=== PATIENT | female | born 1955 | race Caucasian/White ===

== ENCOUNTER → 2016-07-17 | Outpatient (CLI) | payer OTHER ==
--- NOTE | 2016-07-17 09:21 | WOMENS IMAGING REPORT ---
EXAM DESCRIPTION: BILAT SCREENING MAMMO W/CAD COMPLETED DATE/TIME: 07/17/2016 9:12 am REASON FOR STUDY: Z12.31 ROUTINE SCREENING MAMMO Z12.31 ENCNTR SCREEN MAMMOGRAM FOR MALIGNANT NEOPL ASM OF BIBI COMPARISON: Multiple since 2010 TECHNIQUE: Standard craniocaudal and mediolateral oblique views of each breast recorded using [employer] l acquisition. LIMITATIONS: None. FINDINGS: No masses, calcifications or architectural distortion. No areas of suspicion. Read with the assistance of CAD. .[facility] - R2 Cenova Version 1.3 .[facility] Imaging - R2 Cenova Version 1.3 .[facility] Imaging - R2 Cenova Version 2.4 .[facility] - R2 Cenova Version 2.4 .[facility] - R2 [employer] Version 9.2 BREAST DENSITY: b. There are scattered areas of fibroglandular density. BIRAD: 1 NEGATIVE RECOMMENDATION: ROUTINE SCREENING COMMENT: PATIENT NOTIFIED BY LETTER. The [employer] recommends an annual screening mammogram for women aged 40 years or over. Each patient will receive a reminder prior to the anniversary date of her mammogram. The [employer] (ACR) has developed recommendations for screening MRI of the breast s in certain patient populations, to be used in conjunction with mammography. Breast MRI surveillanc e may be appropriate for women with more than 20% lifetime risk of developing breast cancer as deter mined by genetic testing, significant family history of the disease, or history of mantle radiation f or Hodgkins Disease. ACR Practice Guidelines 2008. TECHNICAL DOCUMENTATION: FINDING NUMBER: (1) ASSESSMENT: (1) JOB ID: [id number] [employer]- All Rights Reserved
== END ==
LOC: WI 08:48
PROVIDERS: ATTEND Physician Assistant
DX: Z12.31 Encounter for screening mammogram for malignant neoplasm of breast (principal)
CPT/HCPCS: 77067; G0202

== ENCOUNTER 2016-08-07 07:35 | Day surgery (SDC) | payer OTHER ==
[~2016-08-07 07:35] MED LIST: EPINEPHRINE INJ 1 MG/10 ML DISP.SYRIN ONE; FLUMAZENIL INJ 0.5 MG/5 ML VIAL IV ONE; GLUCAGON,HUMAN RECOMB 1 MG INJ ONE; GLYCOPYRROLATE INJ 0.4 MG/2 ML VIAL ONE; LIDOCAINE 2% JELLY 30 ML TUBE ONE; NALOXONE HCL INJ/PF 0.4 MG/1 ML SDV ONE; ONDANSETRON HCL INJ/PF 4 MG/2 ML SDV ONE; PROMETHAZINE HCL INJ 25 MG/1 ML VIAL ONE
[2016-08-07] MEDS: MIDAZOLAM 2 MG/2 ML INJ ONE ×2 (08:02→08:07)
[2016-08-07] MEDS: FENTANYL CITRATE INJ/PF 100 MCG/2 ML AMPUL ONE ×2 (08:04→08:10)
[2016-08-07 09:20] LABS: ABSOLUTE BASOPHILS # (AUTO) 0.1 10^3/uL (0.0-0.2); ABSOLUTE EOSINOPHILS # (AUTO) 0.1 10^3/uL (0.0-0.6); ABSOLUTE MONOCYTES (AUTO) 0.9 10^3/uL (0.1-1.4); ABSOLUTE NEUT (AUTO) 10.6 10^3/uL (1.7-8.2); BASOPHILS % (AUTO) 0.5 % (0-2); HEMATOCRIT 37.1 % (36.0-47.0); HEMOGLOBIN 12.7 g/dL (12.0-15.5); LYMPHOCYTES % (AUTO) 14.4 % (13-45); MEAN CORPUSCULAR HEMOGLOBIN 30.6 pg (27.0-33.4); MEAN CORPUSCULAR HGB CONC 34.2 g/dL (32.0-36.0); MEAN CORPUSCULAR VOLUME 90 fl (80-97); MONOCYTES % (AUTO) 6.6 % (3-13); RED BLOOD COUNT 4.15 10^6/uL (3.72-5.28); RED CELL DISTRIBUTION WIDTH 12.9 % (11.5-14.0); SEGMENTED NEUTROPHILS % (AUTO) 77.5 % (42-78); WHITE BLOOD COUNT 13.7 10^3/uL (4.0-10.5)
[2016-08-07 09:41] VITALS: BP 131/61
--- NOTE | 2016-08-07 15:27 | DISCHARGE SUMMARY E ---
Discharge Summary NAME: MARIAH COURTNEY : 1955 AGE: 61Y ADMITTED: 08/07/2016 DISCHARGED: 08/07/2016 PROCEDURE: Colonoscopy. FINAL DIAGNOSES: 1. Redundant colon. 2. External hemorrhoids. 3. Mild diminutive rectal polyps. 4. A 2 mm sigmoid polyp. HOSPITAL COURSE: A 61-year-old female underwent colon screening, shows no malignancy. Difficult colonoscopy but successful to the cecum. Today the colon shows diminutive 2 mm polyps, sigmoid and rectum. She did have mild external hemorrhoids. DISCHARGE PLAN: 1. Soft residue diet. 2. Baseline CBC. 3. Advised to come to the emergency room if she has severe or moderate abdominal pain. 4. She is to avoid aspirin and nonsteroidal for a week. 5. Consider followup colonoscopy in 3 years. Keep in mind she has difficult sigmoid intubation. DICTATING PHYSICIAN: NIYA CONTRERAS M.D. [id number] PHY#: [id number] ID: [id number] JOB#: [id number] ACCT: [id number] cc:NIYA CONTRERAS M.D., SWETANG M.D. >
--- NOTE | 2016-08-07 15:29 | OPERATIVE REPORT E ---
Operative Report NAME: MARIAH COURTNEY : 1955 AGE: 61Y DATE OF SURGERY: 08/07/2016 ROOM: PREOPERATIVE DIAGNOSIS: Colon screening. POSTOPERATIVE DIAGNOSES: 1. Redundant colon. 2. A 2 mm anal polyp. 3. A 2 mm sigmoid polyp. 4. These are small hyperplastic diminutive polyps, no biopsy obtained. 5. Mild external hemorrhoids. PROCEDURE: Colonoscopy. SURGEON: NIYA CONTRERAS M.D. ANESTHESIA: Versed 3; fentanyl 100. TISSUE REMOVED OR ALTERED: None. DESCRIPTION: Rectal exam: Shows mild external hemorrhoids. Anal area shows 2 mm diminutive polyp, too small to biopsy. Sigmoid colon: A 2 mm polyp, too small to biopsy. Sigmoid descending colon: Redundant, difficult to intubate. We were able to pass it with some difficulty. There was mild bruise, mild hickey in the sigmoid but no perforation and no bleeding. Descending colon: Shows no polyps. Transverse colon: Showed some stool. Ascending colon: Showed some stool. Cecum: Normal. Scope was withdrawn from cecum, ascending, transverse, descending, and sigmoid, shows small ecchymosis from difficulty of sigmoid intubation but no tear, no bleeding, no perforation. The rectum and the sigmoid otherwise shows diminutive, benign looking polyps. PLAN: 1. Full liquids for a few hours, then soft low-residue. 2. Baseline CBC. 3. Patient advised to come to the EMERGENCY ROOM if he has abdominal pain. 4. Patient may need followup colonoscopy after 3 years regarding inadequate prep and redundant colon. Keep in mind she has difficult sigmoid intubation. DICTATING PHYSICIAN: NIYA CONTRERAS M.D. [id number] Y#: [id number] ID: [id number] JOB#: [id number] ACCT: [id number] cc:NIYA CONTRERAS M.D., SWETANG M.D. >
== END 2016-08-07 09:40 | disposition home or self-care (01) ==
LOC: END 07:35
PROVIDERS: ATTEND Specialist
PROC: 0DJD8ZZ Inspection of Lower Intestinal Tract, Via Natural or Artificial Opening Endoscopic (ICD-10-PCS; principal; 2016-08-07 08:00)
DX: Z12.11 Encounter for screening for malignant neoplasm of colon (principal); Q43.8 Other specified congenital malformations of intestine; K64.4 Residual hemorrhoidal skin tags; K62.1 Rectal polyp; D12.7 Benign neoplasm of rectosigmoid junction; F17.210 Nicotine dependence, cigarettes, uncomplicated; E78.00 Pure hypercholesterolemia, unspecified; Z79.899 Other long term (current) drug therapy
CPT/HCPCS: 45378; 36415; 85025; J2250; J3010; J1610; J0171; J2310; J2405; J2550; J3490

== ENCOUNTER 2016-10-15 06:20 | Emergency (ER) | payer OTHER ==
[2016-10-15 06:59] LABS: ABSOLUTE BASOPHILS # (AUTO) 0.1 10^3/uL (0.0-0.2); ABSOLUTE EOSINOPHILS # (AUTO) 0.2 10^3/uL (0.0-0.6); ABSOLUTE LYMPHOCYTES (AUTO) 4.2 10^3/uL (0.5-4.7); ABSOLUTE MONOCYTES (AUTO) 0.7 10^3/uL (0.1-1.4); ABSOLUTE NEUT (AUTO) 5.4 10^3/uL (1.7-8.2); BASOPHILS % (AUTO) 0.8 % (0-2); EOSINOPHILS % (AUTO) 1.6 % (0-6); HEMATOCRIT 37.6 % (36.0-47.0); HEMOGLOBIN 13.2 g/dL (12.0-15.5); LYMPHOCYTES % (AUTO) 40.1 % (13-45); MEAN CORPUSCULAR HEMOGLOBIN 31.2 pg (27.0-33.4); MEAN CORPUSCULAR VOLUME 89 fl (80-97); MONOCYTES % (AUTO) 6.4 % (3-13); RED BLOOD COUNT 4.23 10^6/uL (3.72-5.28); RED CELL DISTRIBUTION WIDTH 13.1 % (11.5-14.0); SEGMENTED NEUTROPHILS % (AUTO) 51.1 % (42-78); WHITE BLOOD COUNT 10.5 10^3/uL (4.0-10.5)
[2016-10-15] MEDS ORDERED: NORMAL SALINE 1000 ML 1,000 ML IV ONE (07:03)
[2016-10-15 07:15] LABS: ALANINE AMINOTRANSFERASE 34 U/L (9-52); ALBUMIN 4.4 g/dL (3.5-5.0); ALKALINE PHOSPHATASE 36 U/L (38-126); ANION GAP 13 (5-19); ASPARTATE AMINO TRANSFERASE 36 U/L (14-36); BILIRUBIN,DIRECT 0.1 mg/dL (0.0-0.4); BILIRUBIN,TOTAL 0.4 mg/dL (0.2-1.3); BLOOD UREA NITROGEN 14 mg/dL (7-20); CALCIUM 9.7 mg/dL (8.4-10.2); CARBON DIOXIDE 25 mmol/L (22-30); CHLORIDE 107 mmol/L (98-107); CREATINE KINASE 37 U/L (30-135); CREATININE RESULT 0.57 mg/dL (0.52-1.25); GLUCOSE 114 mg/dL (75-110); POTASSIUM 4.4 mmol/L (3.6-5.0); SODIUM 145.4 mmol/L (137-145); TOTAL PROTEIN 6.9 g/dL (6.3-8.2)
[2016-10-15 07:26] LABS: CREATINE KINASE MB < 0.22 ng/mL (<4.55); TROPONIN I < 0.012 ng/mL
--- NOTE | 2016-10-15 07:37 | ER Document Report ---
ED Syncope and Near Syncope - General Mode of Arrival: Ambulatory Information source: Patient TRAVEL OUTSIDE OF THE [place] IN LAST 30 DAYS: No - HPI Patient complains to provider of: Nearly fainting Episode witnessed (by whom): Yes - Single episoded occurred: yes Position/Activity at time of episode: Standing Details of activity: standing up out of her chair to use the restroom Context: Almost passed out, Collapsed Injury location: None Current symptoms: None/feels back to normal <BROCK OROZCO - Last Filed: 10/15/16 07:42> <PATRICK DEAL - Last Filed: 10/15/16 07:55> - General Chief Complaint: Syncope Stated Complaint: POSSIBLE SYNCOPE EPISODE Time Seen by Provider: 10/15/16 06:50 Notes: Patient is a 61-year-old female presenting to the emergency department to accompany her , who is also a patient, but after sitting for several minutes, she stood up to go to the bathroom and had a near syncopal episode where she fell. Patient does not believe that she lost consciousness, and she denies any injury. Patient states "it is probably because I have not had my morning coffee yet." Patient's primary care physician is Dr. Garza, who she was supposed to have an appointment with this morning at 0800. (BROCK OROZCO) - Related Data Allergies/Adverse Reactions: No Known Allergies Allergy (Verified 08/05/16 13:59) Past Medical History - General Information source: Patient - Social History Smoking Status: Unknown if Ever Smoked Family History: Reviewed & Not Pertinent - Past Medical History Cardiac Medical History: Reports: Hx Hypercholesterolemia Denies: Hx Hypertension Pulmonary Medical History: GI Medical History: Musculoskeltal Medical History: Infectious Medical History: Past Surgical History: Reports: Hx Adenoidectomy, Hx Orthopedic Surgery - Left ankle, left knee, left leg, Hx Tonsillectomy, Other - Ganglion cyst removal - Immunizations Hx Diphtheria, Pertussis, Tetanus Vaccination: Yes <BROCK OROZCO - Last Filed: 10/15/16 07:42> Review of Systems - Review of Systems Constitutional: No symptoms reported EENT: No symptoms reported Cardiovascular: No symptoms reported, Syncope - Near-Syncope Respiratory: No symptoms reported Gastrointestinal: No symptoms reported Genitourinary: No symptoms reported Female Genitourinary: No symptoms reported Musculoskeletal: No symptoms reported Skin: No symptoms reported Hematologic/Lymphatic: No symptoms reported Neurological/Psychological: No symptoms reported -: Yes All other systems reviewed and negative <ERNESTOBROCK - Last Filed: 10/15/16 07:42> Physical Exam - General General appearance: Appears well, Alert - HEENT Head: Normocephalic, Atraumatic Eyes: Normal Pupils: PERRL Neck: No: Carotid bruit - Respiratory Respiratory status: No respiratory distress Chest status: Nontender Breath sounds: Normal Chest palpation: Normal - Cardiovascular Rhythm: Regular Heart sounds: Normal auscultation Murmur: No - Abdominal Inspection: Normal - Soft - Back Back: Normal, Nontender - Extremities General upper extremity: Normal inspection, Nontender General lower extremity: Normal inspection, Nontender - Neurological Neuro grossly intact: Yes Cognition: Normal Orientation: AAOx4 Alexis Coma Scale Eye Opening: Spontaneous Thornton Coma Scale Verbal: Oriented Thornton Coma Scale Motor: Obeys Commands Alexis Coma Scale Total: 15 - Psychological Associated symptoms: Normal affect, Normal mood - Skin Skin Temperature: Warm Skin Moisture: Dry Skin Color: Normal <BROCK OROZCO - Last Filed: 10/15/16 07:42> Course - Laboratory Result Diagrams: 10/15/16 06:34 10/15/16 06:34 <ERNESTOBROCK - Last Filed: 10/15/16 07:42> - Laboratory Result Diagrams: 10/15/16 06:34 10/15/16 06:34 - EKG Interpretation by Pr EKG shows normal: Sinus rhythm, [place], QRS Complexes, ST-T Waves. abnormal: Intervals - Borderline prolonged QT interval Rate: Normal - 76 Rhythm: NSR When compared to previous EKG there are: Previous EKG unavailable <PATRICK DEAL - Last Filed: 10/15/16 07:55> - Vital Signs Vital signs: Temp Pulse Resp BP Pulse Ox 97.4 F 48 L 20 137/67 H 100 10/15/16 06:20 10/15/16 06:20 10/15/16 07:31 10/15/16 07:31 10/15/16 07:31 - Laboratory Laboratory results interpreted by me: 10/15/16 06:34 Sodium 145.4 H Glucose 114 H Alkaline Phosphatase 36 L Discharge <BROCK OROZCO - Last Filed: 10/15/16 07:42> <SAYJARETH VirgenPATRICK - Last Filed: 10/15/16 07:55> - Discharge Clinical Impression: Vasovagal syncope Condition: Stable Disposition: HOME, SELF-CARE Additional Instructions: Vasovagal Symptoms: Your symptoms seem to be due to a fall in blood pressure, caused by the interaction of your nervous system with your circulatory system. This can result in abnormally slow pulse rate, faintness, abnormal sensations, low blood pressure, difficulty with vision, or fainting (syncope). Vasovagal symptoms may be brought on by emotional distress, pain, dehydration, bleeding, or medication effects. Often, no cause can be identified. Your exam has revealed no signs of a serious problem. Usually, no further tests are required. However, if further workup has been recommended it's important that you follow up as instructed. Should you feel lightheaded or "about to faint," you should sit or lie down as quickly as possible. The episode will usually pass. Recurring symptoms will require further evaluation to determine the cause. Call the physician if you develop severe prolonged dizziness, headache, chest pain, shortness of breath, or other new symptoms. //////////////////////////////////////////////////////////////////////////////// //////////////////////////////////////////////////////////////////////////////// /////////////// Drink plenty of fluids today. Follow-up with Dr. Garza if further problems. RETURN TO THE EMERGENCY ROOM IF ANY NEW OR WORSENING SYMPTOMS. Referrals: LILIANA GARZA MD [Primary Care Provider] - Follow up as needed Scribe Attestation: 10/15/16 07:53 I personally performed the services described in the documentation, reviewed and edited the documentation which was dictated to the scribe in my presence, and it accurately records my words and actions. (PATRICK DEAL) Scribe Documentation - Scribe Written by Scribe:: Brock Orozco 10/15/2016 0733 acting as scribe for :: Say <BROCK OROZCO - Last Filed: 10/15/16 07:42>
[2016-10-15 08:12] VITALS: BP 146/78
--- NOTE | 2016-10-15 11:21 | EKG REPORT ---
SEVERITY:- BORDERLINE ECG - SINUS RHYTHM BORDERLINE PROLONGED QT INTERVAL : Confirmed by: Emile Boston 15-Oct-2016 11:20:45
== END 2016-10-15 08:12 | disposition home or self-care (01) ==
LOC: ER 06:20
DX: R55 Syncope and collapse (principal); W19.XXXA Unspecified fall, initial encounter
CPT/HCPCS: 93005; 99284; 96360; 36415; 82553; 82962; 82550; 85025; 80053; 84484; 93010; J7030

== ENCOUNTER → 2017-07-24 | Outpatient (CLI) | payer OTHER ==
--- NOTE | 2017-07-24 09:15 | WOMENS IMAGING REPORT ---
EXAM DESCRIPTION: BILAT SCREENING MAMMO W/CAD COMPLETED DATE/TIME: 07/24/2017 8:33 am REASON FOR STUDY: ROUTINE SCREENING; Z12.31 Z12.31 ENCNTR SCREEN MAMMOGRAM FOR MALIGNANT NEOPLASM O F BIBI COMPARISON: 2010 to 2016 TECHNIQUE: Standard craniocaudal and mediolateral oblique views of each breast recorded using [employer] acquisition. LIMITATIONS: None. FINDINGS: No masses, calcifications or architectural distortion. No areas of suspicion. Read with the assistance of CAD. .[facility] - R2 Cenova Version 1.3 .[facility] Imaging - R2 Cenova Version 1.3 .[facility] Imaging - R2 Cenova Version 2.4 .[facility] - R2 Cenova Version 2.4 .[facility] - R2 [employer] Version 9.2 IMPRESSION: NORMAL MAMMOGRAM. BIRADS 1. BREAST DENSITY: b. There are scattered areas of fibroglandular density. BIRAD: 1 NEGATIVE RECOMMENDATION: ROUTINE SCREENING COMMENT: The patient has been notified of the results by letter per SA requirements. Additional no tification policies are in place for contacting patient with suspicious or incomplete findings. Quality ID #[id number]: The [employer] recommends an annual screening mammogram for women aged 40 years or over. This facility utilizes a reminder system to ensure that all patients receive reminder letters, and/or direct phone calls for appointments. This includes reminders for routine scr eening mammograms, diagnostic mammograms, or other Breast Imaging Interventions when appropriate. Th is patient will be placed in the appropriate reminder system. The [employer] (ACR) has developed recommendations for screening MRI of the breast s in certain patient populations, to be used in conjunction with mammography. Breast MRI surveillanc e may be appropriate for women with more than 20% lifetime risk of developing breast cancer as deter mined by genetic testing, significant family history of the disease, or history of mantle radiation f or Hodgkins Disease. ACR Practice Guidelines 2008. TECHNICAL DOCUMENTATION: FINDING NUMBER: (1) ASSESSMENT: (1) JOB ID: [id number] [employer]- All Rights Reserved
== END ==
LOC: WI 08:18
PROVIDERS: ATTEND Physician Assistant
DX: Z12.31 Encounter for screening mammogram for malignant neoplasm of breast (principal)
CPT/HCPCS: 77067

== ENCOUNTER → 2018-09-22 | Outpatient (CLI) | payer MEDICARE, OTHER ==
--- NOTE | 2018-09-22 11:39 | WOMENS IMAGING REPORT ---
EXAM DESCRIPTION: 3D SCREENING MAMMO BILAT COMPLETED DATE/TIME: 09/22/2018 10:45 am REASON FOR STUDY: Z12.31 ROUTINE 3D BILATERAL SCREENING Z12.31 ENCNTR SCREEN MAMMOGRAM FOR MALIGNAN T NEOPLASM OF BIBI COMPARISON: 07/24/2017 and 07/17/2016. TECHNIQUE: Standard craniocaudal and mediolateral oblique views of each breast recorded using [employer]ita l acquisition and breast tomosynthesis. LIMITATIONS: None. FINDINGS: RIGHT BREAST MASSES: No suspicious masses. CALCIFICATIONS: No new or suspicious calcifications. ARCHITECTURAL DISTORTION: None. DEVELOPING DENSITY: Possible developing density in the upper-outer breast, located 4 to 5 cm from the nipple. Somewhat indistinct appearance on tomosynthesis images. ASYMMETRY: None noted. OTHER: No other significant findings. LEFT BREAST MASSES: No suspicious masses. CALCIFICATIONS: No new or suspicious calcifications. ARCHITECTURAL DISTORTION: None. DEVELOPING DENSITY: None. ASYMMETRY: None noted. OTHER: No other significant findings. Read with the assistance of CAD. .[facility] - R2 Cenova Version 1.3 .[facility] Imaging - R2 Cenova Version 2.1 .[facility] - R2 Cenova Version 2.4 .[facility] - R2 Cenova Version 2.4 .[facility] - R2 [employer] Version 9.2 IMPRESSION: Possible developing density in the upper-outer right breast. Stable mammographic appear ance of the left breast. BREAST DENSITY: b. There are scattered areas of fibroglandular density. BIRAD: 0 Incomplete: Needs Additional Imaging Evaluation and/or prior Mammograms for Comparison. RECOMMENDATION: RECOMMENDED FOLLOW-UP: Recommend additional evaluation with compression views of the right breast and ultrasound of the right breast. Recommend routine screening mammography of the lef t breast. The patient will be contacted for additional imaging. COMMENT: The patient has been notified of the results by letter per SA requirements. Additional no tification policies are in place for contacting patient with suspicious or incomplete findings. Quality ID #[id number]: The [employer] recommends an annual screening mammogram for women aged 40 years or over. This facility utilizes a reminder system to ensure that all patients receive reminder letters, and/or direct phone calls for appointments. This includes reminders for routine scr eening mammograms, diagnostic mammograms, or other Breast Imaging Interventions when appropriate. Th is patient will be placed in the appropriate reminder system. The [employer] (ACR) has developed recommendations for screening MRI of the breast s in certain patient populations, to be used in conjunction with mammography. Breast MRI surveillanc e may be appropriate for women with more than 20% lifetime risk of developing breast cancer as deter mined by genetic testing, significant family history of the disease, or history of mantle radiation f or Hodgkins Disease. ACR Practice Guidelines 2008. D[employer] DBT is a type of tomographic mammography. With conventional mammography, overlapping breast tissue ma y make lesions difficult to detect, even with good compression. DBT uses an x-ray tube that rotates a round the breast, taking images at different angles. These images are then combined to create thin sl ices of the breast that the radiologist can view as a 3D reconstruction. The [employer] unit can perform full-field digital mammograms (2D imaging); or DBT (3D imaging); or both, in a combination mode that quickly performs both the mammogram and the tomosynthesis scan while the breast is still compressed. PQRS 6045F: Fluoroscopic imaging is not utilized for breast tomosynthesis. TECHNICAL DOCUMENTATION: FINDING NUMBER: (1) ASSESSMENT: (1) JOB ID: [id number] [employer]- All Rights Reserved Reading location - IP/workstation name: [email or web address]
== END ==
LOC: WI 10:29
PROVIDERS: ATTEND Family Medicine
DX: Z12.31 Encounter for screening mammogram for malignant neoplasm of breast (principal); R92.2 Inconclusive mammogram
CPT/HCPCS: 77063; 77067

== ENCOUNTER → 2018-09-29 | Outpatient (CLI) | payer MEDICARE, OTHER ==
--- NOTE | 2018-09-29 10:34 | WOMENS IMAGING REPORT ---
EXAM DESCRIPTION: BONE DENSITY HIP/SPINE COMPLETED DATE/TIME: 09/29/2018 10:03 am REASON FOR STUDY: M81.0 AGE-RELATED OSTEOPOROSIS WITHOUT CURRENT PATHOLOGICAL FRACTURE N63.11 UNSPE CIFIED LUMP IN THE RIGHT BREAST, UPPER OUTER AMISHA M81.0 AGE-RELATED OSTEOPOROSIS W/O CURRENT PATHOLOG ICAL 0 0 COMPARISON: None. TECHNIQUE: Dual-Energy X-ray Absorptiometry (DEXA) of the AP Spine and Hip. LIMITATIONS: None. FINDINGS: LUMBAR SPINE: The bone mineral density (BMD) measured from L1-L4 in the AP projection correlates with a T-score of -2.1, which is osteopenic as defined by the World Health Organization. HIP: The bone mineral density (BMD) measured in the left femoral neck at the hip correlates with a T-score of -1.8, which is osteopenic as defined by the World Health Organization. IMPRESSION: 1. LUMBAR SPINE: OSTEOPENIA. 2. HIP: OSTEOPENIA. COMMENT: The World Health Organization defines low BMD as follows: T-score: Normal: Greater than -1.0 Osteopenia: Between -1.0 and -2.5 Osteoporosis: Less than -2.5 without fractures Established osteoporosis: Less than -2.5 with fractures In general, you may wish to consider: Diagnosis Treatment Follow-up DEXA Normal BMD Prevention 2-3 years Osteopenia Prevention/Therapy 1-2 years Osteoporosis Therapy Yearly TECHNICAL DOCUMENTATION: JOB ID: [id number] [employer]- All Rights Reserved Reading location - IP/workstation name: [email or web address]
--- NOTE | 2018-09-29 14:13 | WOMENS IMAGING REPORT ---
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 Right breast 90 mediolateral view. Right breast ultrasound was also performed. LIMITATIONS: None. FINDINGS: BREAST LATERALITY: Right MASSES: No suspicious masses. CALCIFICATIONS: No new or suspicious calcifications. ARCHITECTURAL DISTORTION: None. DEVELOPING DENSITY: None. ASYMMETRY: None noted. OTHER: No other significant findings. Read with the assistance of CAD. .[facility] - R2 Cenova Version 1.3 .[facility] Imaging - R2 Cenova Version 2.1 .[facility] Imaging - R2 Cenova Version 2.4 .[facility] [place] R2 Cenova Version 2.4 .[facility] - R2 [employer] Version 9.2 Right breast ultrasound: Ultrasound of the right lateral breast was performed from the 8 to 10 o'clock position. No discrete cystic or solid lesions. No worrisome acoustic absorption. No dilated ducts. No focal findings. IMPRESSION: No mammographic or sonographic evidence for malignancy right breast BREAST DENSITY: a. The breasts are almost entirely fatty. BIRAD: 1 Negative. RECOMMENDATION: RECOMMENDED FOLLOW UP: Please continue yearly bilateral screening tomosynthesis in A pri 2020 SPECIFIC INTERVENTION/IMAGING/CONSULTATION RECOMMENDED:No additional intervention/ imaging/consultati on needed at this time. COMMUNICATION:The negative/benign results were communicated to the patient. COMMENT: The patient has been notified of the results by letter per SA requirements. Additional no tification policies are in place for contacting patient with suspicious or incomplete findings. Quality ID #225: The [employer] recommends an annual screening mammogram for women aged 40 years or over. This facility utilizes a reminder system to ensure that all patients receive reminder letters, and/or direct phone calls for appointments. This includes reminders for routine scr eening mammograms, diagnostic mammograms, or other Breast Imaging Interventions when appropriate. Th is patient will be placed in the appropriate reminder system. The [employer] (ACR) has developed recommendations for screening MRI of the breast s in certain patient populations, to be used in conjunction with mammography. Breast MRI surveillanc e may be appropriate for women with more than 20% lifetime risk of developing breast cancer as deter mined by genetic testing, significant family history of the disease, or history of mantle radiation f or Hodgkins Disease. ACR Practice Guidelines 2008. TECHNICAL DOCUMENTATION: FINDING NUMBER: (1) ASSESSMENT: (1) JOB ID: [id number] [employer]- All Rights Reserved Reading location - IP/workstation name: [email or web address]
--- NOTE | 2018-09-29 14:13 | WOMENS IMAGING REPORT ---
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 Right breast 90 mediolateral view. Right breast ultrasound was also performed. LIMITATIONS: None. FINDINGS: BREAST LATERALITY: Right MASSES: No suspicious masses. CALCIFICATIONS: No new or suspicious calcifications. ARCHITECTURAL DISTORTION: None. DEVELOPING DENSITY: None. ASYMMETRY: None noted. OTHER: No other significant findings. Read with the assistance of CAD. .[facility] - R2 Cenova Version 1.3 .[facility] - R2 Cenova Version 2.1 .[facility] - R2 Cenova Version 2.4 [place] [place] Cenova [place] 2.4 .[facility] - R2 Angle Shear Set Up Operator Version 9.2 Right breast ultrasound: Ultrasound of the right lateral breast was performed from the 8 to 10 o'clock position. No discrete cystic or solid lesions. No worrisome acoustic absorption. No dilated ducts. No focal findings. IMPRESSION: No mammographic or sonographic evidence for malignancy right breast BREAST DENSITY: a. The breasts are almost entirely fatty. BIRAD: 1 Negative. RECOMMENDATION: RECOMMENDED FOLLOW UP: Please continue yearly bilateral screening tomosynthesis in A pri 2020 SPECIFIC INTERVENTION/IMAGING/CONSULTATION RECOMMENDED:No additional intervention/ imaging/consultati on needed at this time. COMMUNICATION:The negative/benign results were communicated to the patient. COMMENT: The patient has been notified of the results by letter per SA requirements. Additional no tification policies are in place for contacting patient with suspicious or incomplete findings. Quality ID #[id number]: The [employer] recommends an annual screening mammogram for women aged 40 years or over. This facility utilizes a reminder system to ensure that all patients receive reminder letters, and/or direct phone calls for appointments. This includes reminders for routine scr eening mammograms, diagnostic mammograms, or other Breast Imaging Interventions when appropriate. Th is patient will be placed in the appropriate reminder system. The [employer] ([employer]) has developed recommendations for screening MRI of the breast s in certain patient populations, to be used in conjunction with mammography. Breast MRI surveillanc e may be appropriate for women with more than 20% lifetime risk of developing breast cancer as deter mined by genetic testing, significant family history of the disease, or history of mantle radiation f or Hodgkins Disease. [employer] Practice Guidelines 2008. TECHNICAL DOCUMENTATION: FINDING NUMBER: (1) ASSESSMENT: (1) JOB ID: [id number] [employer]- All Rights Reserved Reading location - IP/workstation name: [email or web address]
== END ==
LOC: WI 09:21
PROVIDERS: ATTEND Family Medicine
DX: N63.11 Unspecified lump in the right breast, upper outer quadrant (principal); M81.0 Age-related osteoporosis without current pathological fracture
CPT/HCPCS: 76642; 77080

== ENCOUNTER 2019-11-16 10:02 | Emergency (ER) | payer MEDICARE, OTHER ==
[2019-11-16] MEDS ORDERED: KETOROLAC TROMETHAMINE INJ/PF 30 MG/1 ML SDV IV ONE (10:11)
[2019-11-16] MEDS ORDERED: KETOROLAC TROMETHAMINE INJ/PF 30 MG/1 ML SDV IM ONE (10:13)
--- NOTE | 2019-11-16 10:15 | ER Document Report ---
ED Extremity Problem, Upper - General Chief Complaint: Shoulder Pain Stated Complaint: LEFT SHOULDER PAIN Time Seen by Provider: 11/16/19 10:04 Primary Care Provider: [facility] [Provider Group] - Follow up as needed LILIANA RODRIGUEZ MD [Primary Care Provider] - Follow up as needed Mode of Arrival: Ambulatory Information source: Patient Notes: 64-year-old female presents to ED for complaint of pain in the left shoulder. She states she is unable to lift it above her head. She states she had a little bit of pain in yesterday but the pain is much more today. She states it is a stabbing pain. Patient has not had anything for pain since yesterday. She states the pain is a 4-1/2 out of 5 patient is alert oriented respirations regular and unlabored speaking in full sentences. TRAVEL OUTSIDE OF THE [place] IN LAST 30 DAYS: No - HPI Patient complains to provider of: Pain, Left, Shoulder Onset: Yesterday Recent injury: No Quality of pain: Sharp, Stabbing Severity of pain: Severe Pain Level: 5 Associated symptoms: None Exacerbated by: Movement, Exertion Relieved by: Rest, Positioning Similar symptoms previously: No Recently seen / treated by doctor: No - Related Data Allergies/Adverse Reactions: No Known Allergies Allergy (Verified 11/16/19 10:04) Past Medical History - General Information source: Patient - Social History Smoking Status: Current Every Day Smoker Cigarette use (# per day): Yes - 4 cigarettes a day Smoking Education Provided: Yes - 4 minutes Frequency of alcohol use: Rare Drug Abuse: None Family History: Reviewed & Not Pertinent - Past Medical History Cardiac Medical History: Reports: Hx Hypercholesterolemia Denies: Hx Coronary Artery Disease, Hx Heart Attack, Hx Hypertension Pulmonary Medical History: Denies: Hx Asthma, Hx Bronchitis, Hx COPD, Hx Pneumonia Neurological Medical History: Denies: Hx Cerebrovascular Accident, Hx Seizures GI Medical History: Musculoskeletal Medical History: Denies Hx Arthritis Infectious Medical History: Past Surgical History: Reports: Hx Adenoidectomy, Hx Orthopedic Surgery - Left ankle, left knee, left leg, Hx Tonsillectomy, Other - Ganglion cyst removal. Denies: Hx Hysterectomy, Hx Pacemaker - Immunizations Hx Diphtheria, Pertussis, Tetanus Vaccination: Yes Physical Exam - Vital signs Vitals: Temp Pulse Resp BP Pulse Ox 97.8 F 89 16 143/63 H 97 11/16/19 10:07 11/16/19 10:07 11/16/19 10:07 11/16/19 10:07 11/16/19 10:07 Interpretation: Normal - General General appearance: Appears well, Alert - HEENT Head: Normocephalic, Atraumatic Eyes: Normal Pupils: PERRL - Respiratory Respiratory status: No respiratory distress Chest status: Nontender Breath sounds: Normal Chest palpation: Normal - Cardiovascular Rhythm: Regular Heart sounds: Normal auscultation Murmur: No - Abdominal Inspection: Normal Distension: No distension Bowel sounds: Normal Tenderness: Nontender Organomegaly: No organomegaly - Back Back: Normal, Nontender - Extremities General upper extremity: Normal color, Normal temperature General lower extremity: Normal inspection, Nontender, Normal color, Normal ROM, Normal temperature, Normal weight bearing. No: Sheree's sign Shoulder: Tender, Limited ROM - Neurological Neuro grossly intact: Yes Cognition: Normal Orientation: AAOx4 Alexis Coma Scale Eye Opening: Spontaneous Alexis Coma Scale Verbal: Oriented Alexis Coma Scale Motor: Obeys Commands Alexis Coma Scale Total: 15 Speech: Normal Motor strength normal: LUE, RUE, LLE, RLE Sensory: Normal - Psychological Associated symptoms: Normal affect, Normal mood - Skin Skin Temperature: Warm Skin Moisture: Dry Skin Color: Normal Course - Re-evaluation Re-evalutation: 11/16/19 20:57 No acute changes noted to shoulder. Patient did not have any known injury to the shoulder. She was given instructions on shoulder exercises ice warm packs and follow-up with orthopedics. Patient was able to verbalize understanding of these instructions. Patient did have full range of motion with pain. P - Vital Signs Vital signs: Temp Pulse Resp BP Pulse Ox 98.1 F 78 18 150/58 H 96 11/16/19 11:35 11/16/19 11:35 11/16/19 11:35 11/16/19 11:35 11/16/19 11:35 - Diagnostic Test Radiology reviewed: Image reviewed, Reports reviewed Discharge - Discharge Clinical Impression: Shoulder injury Qualifiers: Encounter type: initial encounter Laterality: left Qualified Code(s): S49.92XA - Unspecified injury of left shoulder and upper arm, initial encounter Condition: Stable Disposition: HOME, SELF-CARE Additional Instructions: Shoulder Injury You have injured your shoulder. This usually results from stretching or tearing of the tendons during trauma. Time and protection are required in order to heal properly. Many injuries are quite disabling, and should be taken seriously. Initial treatment includes cold packs and a sling to rest the shoulder. The physician has assessed the seriousness of your injury, and has outlined a treatment plan. Understand that this treatment may change, depending on how you progress. If a re-examination was recommended, it is important that you follow up as instructed. Some shoulder injuries (such as partial tear of the rotator cuff) are only suspected after you've failed to improve. Call us if there's severe pain, numbness, or loss of function. Exercise Program for the Shoulder Since the shoulder moves in so many directions, the joint attachment is weak. Muscles provide most of the stability to the shoulder. You must exercise your shoulder to prevent painful instability or stiffening. PASSIVE - These may be begun within a few days of the injury. While standing, lean forward, allowing the arm to hang down towards the floor. Move the arm in small circles while slowly twisting your chest towards and away from the hanging arm. Do this for one minute. ACTIVE - These may be performed when the doctor gives permission. Begin with the arms at the sides. Raise the arms forward (shoulder's width apart) until they reach shoulder level. Then slowly swing both arms back until they are aiming straight out away from each other. Then bring them forward again, and finally, lower them to your sides. Repeat 20 to 30 times. As you improve, put weights in your hands for the exercise. Start with one pound, and work up to 10 pounds. Never use more than is comfortable. Athletes may work up to 30 pounds. Anti-Inflammatory Medication You have received a prescription for an antiinflammatory agent. This is an excellent, safe drug for pain control. In addition, it has potent antiinflammatory effects which are beneficial, especially in the treatment of injuries, arthritis, or tendonitis. It's best to take this medicine with food. Persons with ulcer disease or allergy to aspirin should notify their physician of this before taking this drug. Take the medication exactly as prescribed. Don't take additional doses unless instructed to do so by your doctor. If you develop wheezing, shortness of breath, hives, faintness, stomach pain, vomiting, or dark black stools, return for re-evaluation at once. Ice Packs Apply ice packs frequently against the painful area. Many different schedules are recommended, such as "20 minutes on, 20 minutes off" or "one hour ice, two hours rest." If you need to work, you may need to go longer between ice treatments. You should plan to have the area ice packed AT LEAST one fourth of the time. The ice should be applied over the wrap, tape, or splint, or over a layer of cloth -- not directly against the skin. Some ice bags have a built-in cloth and can be put directly on the skin. Warm Packs After approximately two days, apply gentle heat (such as a heating pad or hot water bottle) for about 20 to 30 minutes about every two hours -- at least four times daily. Warmth and elevation will help you make a more rapid recovery, and will ease the pain considerably. Do not use HOT heat, and never apply heat for longer than 30 minutes. The continuous heat can invisibly damage skin and muscles -- even when no burn is seen on the surface. Damaged muscles can make you MORE sore. Toradol Injection You have been given an injection of ketorolac tromethamine (Toradol). This is an excellent, safe drug for pain control. It also has potent antiinflammatory action. You should have significant pain relief within about one hour. Toradol is not addicting and is non-sedating. It does not interfere with driving or work. Call or return if you develop itching, hives, shortness of breath, or rash. FOLLOW-UP CARE: If you have been referred to a physician for follow-up care, call the physicians office for an appointment as you were instructed or within the next two days. If you experience worsening or a significant change in your symptoms, notify the physician immediately or return to the Emergency Department at any time for re-evaluation. Forms: Elevated Blood Pressure Referrals: LILIANA RODRIGUEZ MD [Primary Care Provider] - Follow up as needed [facility] ([place] [Provider Group] - Follow up as needed
--- NOTE | 2019-11-16 10:51 | RADIOLOGY REPORT (SQ) ---
EXAM DESCRIPTION: SHOULDER LEFT 2 OR MORE VIEWS IMAGES COMPLETED DATE/TIME: 11/16/2019 10:40 am REASON FOR STUDY: pain decreased rom COMPARISON: None. NUMBER OF VIEWS: Three views. TECHNIQUE: Internal rotation, external rotation, and Y view images acquired of the left shoulder. LIMITATIONS: None. FINDINGS: MINERALIZATION: Normal. BONES: No acute fracture. JOINTS: No dislocation. Osteoarthrosis of the acromioclavicular joint and osteophyte at the inferior articular surface of the humeral head. VISUALIZED LUNGS AND RIBS: No pneumothorax or rib fracture. SOFT TISSUES: No radiopaque foreign body. OTHER: No other finding. IMPRESSION: No acute osseous abnormality of the left shoulder. TECHNICAL DOCUMENTATION: JOB ID: [id number] 2010 [employer]- All Rights Reserved Reading location - IP/workstation name: [email or web address]
[2019-11-16 11:36] VITALS: BP 150/58
== END 2019-11-16 11:40 | disposition home or self-care (01) ==
LOC: ER 10:02
DX: S49.92XA Unspecified injury of left shoulder and upper arm, initial encounter (principal); M25.512 Pain in left shoulder; X58.XXXA Exposure to other specified factors, initial encounter; F17.210 Nicotine dependence, cigarettes, uncomplicated
CPT/HCPCS: 99406; 99283; 96372; 73030; J1885